=== PATIENT | male | born 1995 | race Caucasian/White ===

== ENCOUNTER 2016-10-11 19:36 | Emergency (ER) | payer OTHER ==
[~2016-10-11] VITALS: Ht 193 cm; Wt 97.2 kg
[2016-10-11 19:41] VITALS: TEMP 37; Ht 193 cm; Wt 97.2 kg
[2016-10-11] MEDS ORDERED: XYLOCAINE 1%/SOD BICARB 20 ML VIAL INFIL ONE (20:00)
--- NOTE | 2016-10-11 20:24 | EMERGENCY ROOM VISIT NOTE ---
History First contact with patient: 19:45 Chief Complaint: LACERATION/CUT (SUT/DERMABOND) Stated Complaint: CUT ON LEFT CALF Nursing Triage Summary: Pt reports laceration to left side of dale. was taking out trash, trash had glass in it. pt had swimming brandi clean it out and bandage it. History of Present Illness The patient is a 21 year old male who presents to the Emergency Room with complaints of left leg laceration that occurred approximately one hour prior to arrival. The patient reports carrying a trashbags out of his apartment when a piece of broken glass cut through the bag and cut his leg. The patient denies any significant bleeding. His etiquette coach evaluated the wound, applied Steri -Strips, and suggested that he come to the emergency department for possible stitches. The patient denies any significant pain. Tetanus immunization is up- to-date. Review of Systems 6 system review was performed and was negative except for pertinent positives and negatives as indicated in history of present illness Past Medical/Surgical History Medical Problems: (1) No significant past medical history Surgical Problems: (1) No history of previous surgery Family History FH: diabetes mellitus FH: heart disease FH: hypertension Social History Smoking Status: Never Smoker Alcohol Use: occasionally Marital Status: single Occupation Status: [employer] student Physical Exam Vital Signs Date Time Temp Pulse Resp B/P Pulse Ox O2 Delivery O2 Flow Rate FiO2 10/11/16 19:41 37.0 69 16 141/81 100 Room Air Physical Exam CONSTITUTIONAL: Healthy and well nourished. Alert and oriented X 3 with positive affect. Patient does not appear in any acute distress. HEENT: Normocephalic, atraumatic. Pupils equal, round and reactive. NECK: Full active range of motion without discomfort. MUSCULOSKELETAL: Examination of the left lateral leg shows a 6 cm laceration without active bleeding. Distal pulses are intact. INTEGUMENTARY: No rash or other significant dermatologic conditions noted. NEUROLOGIC: Left lower extremity is sensory intact. Medical Decision & Procedures Procedure Laceration repair was performed under local anesthesia after receiving verbal consent from the patient. Using buffered 1% lidocaine without epinephrine, good local anesthesia was administered. The wound was then peripherally cleansed with iodine, then thoroughly pressure irrigated with normal saline. Exploration of the wound does not show any underlying debris or glass. The wound was then approximated using 4-0 nylon simple interrupted sutures. Bacitracin dressing was applied. ED Course Patient history and physical exam were performed. Nurse's notes were reviewed. Laceration repair was performed under local anesthesia. The patient was provided additional verbal and written wound care instructions. Ice and elevation for swelling. Ibuprofen or Tylenol as needed for pain. Suture removal in 12-14 days, or seek reevaluation sooner for any signs of wound infection. The patient was happy with plan of care, voiced understanding of all discharge instructions, and denied any pain at the time of discharge. Impression Primary Impression: Laceration of left leg Departure Information Dispostion Home / Self-Care Forms HOME CARE DOCUMENTATION FORM, IMPORTANT VISIT INFORMATION Patient Instructions [facility] Additional Instructions Keep wound clean and dry. Do not allow any crusting or dried blood to accumulate on sutures. If this occurs, use a 1:1 solution of hydrogen peroxide/ water on a Q-tip to clean the wound. Use an antibiotic ointment for 3-4 days, then let wound dry. Suture removal in 12-14 days. Return sooner for any signs of infection (increasing redness, swelling, drainage). Ice and elevate for swelling and pain. Ibuprofen 600 mg and/or Tylenol 1000 mg every 6 hrs as needed for pain. Problem Qualifiers Primary Impression: Laceration of left leg Encounter type: initial encounter Qualified Codes: S81.812A - Laceration without foreign body, left lower leg, initial encounter
[2016-10-11] MEDS ORDERED: AMPH10TA2 PO (20:26)
[2016-10-11 20:42] VITALS: BP 136/83; PULSE 77; O2SAT 98
== END 2016-10-11 20:54 | disposition home or self-care (01) ==
LOC: C.EDB 19:38 → C.EDD 20:54
DX: S81.812A Laceration without foreign body, left lower leg, initial encounter (principal); W25.XXXA Contact with sharp glass, initial encounter